=== PATIENT | male | born 1945 | race Caucasian/White ===

== ENCOUNTER 2018-08-02 17:00 | Outpatient (CLI) | payer MEDICARE, SELFPAY ==
--- NOTE | 2018-08-02 15:44 | DI.RAD_ITS ---
SYMPTOM/DIAGNOSIS: POSITIVE QUANTIFERON TB GOLD TB TEST, R76.12 PA AND LATERAL CHEST: The lungs are free of infiltrate. There is no pleural effusion. The cardiovascular structures are intact. SUMMARY: Normal chest.
== END 2018-08-02 17:20 ==
PROVIDERS: PCP Family Medicine; Visit Provider Dermatology
DX: R76.12 Nonspecific reaction to cell mediated immunity measurement of gamma interferon antigen response without active tuberculosis (principal)
CPT/HCPCS: 71046

== ENCOUNTER 2019-04-12 16:10 | Outpatient (CLI) | payer MEDICARE, SELFPAY ==
[2019-04-12 19:03] LABS: ALT 29 U/L (12-78); AST 21 U/L (15-37); Albumin 3.6 g/dL (3.4-5.0); Alkaline Phosphatase 82 U/L (46-116); Bilirubin, Direct 0.16 mg/dL (0.00-0.20); Bilirubin, Total 0.4 mg/dL (0.2-1.0); Total Protein 6.9 g/dL (6.4-8.2)
[2019-04-14 15:39] LABS: CEA 2.3 ng/ml
== END 2019-04-12 16:30 ==
PROVIDERS: PCP Family Medicine; Visit Provider Family Medicine
DX: C78.5 Secondary malignant neoplasm of large intestine and rectum (principal)
CPT/HCPCS: 36415; 80076; 82378

== ENCOUNTER 2019-12-30 10:32 | Outpatient (CLI) | payer MEDICARE, SELFPAY ==
[2019-12-30 13:48] LABS: ALT 74 U/L (16-63); AST 59 U/L (15-37); Albumin 3.4 g/dL (3.4-5.0); Alkaline Phosphatase 69 U/L (46-116); Bilirubin, Total 0.7 mg/dL (0.2-1.0); Glucose 95 mg/dL (74-106); Total Protein 6.6 g/dL (6.4-8.2); Vitamin B12 306 pg/mL (193-986)
[2019-12-30 14:24] LABS: Bilirubin, Direct 0.22 mg/dL (0.00-0.20); Uric Acid 8.4 mg/dL (3.5-7.2)
[2020-01-02 10:46] LABS: CEA 1.7 ng/mL (See Note)
[2020-01-03 14:51] LABS: Methylmalonic Acid 0.22 nmol/mL (<=0.40)
== END 2019-12-30 10:52 ==
PROVIDERS: PCP Family Medicine; Visit Provider Family Medicine
DX: G62.9 Polyneuropathy, unspecified (principal); G72.89 Other specified myopathies; C78.5 Secondary malignant neoplasm of large intestine and rectum; J18.9 Pneumonia, unspecified organism
CPT/HCPCS: 36415; 80076; 80186; 82947; 82378; 82607; 84550

== ENCOUNTER 2020-01-19 09:40 | Outpatient (CLI) | payer MEDICARE, SELFPAY ==
[2020-01-20 11:39] LABS: Homocysteine 12.8 umol/L (5.0-13.9)
== END 2020-01-19 10:00 ==
PROVIDERS: PCP Family Medicine; Visit Provider Family Medicine
DX: G62.9 Polyneuropathy, unspecified (principal)
CPT/HCPCS: 36415; 83090

== ENCOUNTER 2020-06-22 10:34 | Emergency (ER) | payer MEDICARE, SELFPAY ==
[2020-06-22 10:40] VITALS: BP 143/101; PULSE 76; RESP 18; TEMP 36.6; O2SAT 96
--- NOTE | 2020-06-22 10:45 | DI.US_ITS ---
EXAM: US SCROTUM CLINICAL HISTORY: Right testicle pain TECHNIQUE: Ultrasound performed using standard protocol. COMPARISON: No exams were available for comparison FINDINGS: Scrotal ultrasound was performed according to the usual protocol. The right testis is normal in size and shape. There is a tiny intra testicular cyst. No mass lesion identified. Normal Doppler evalu ation of the right testis. Small right-sided hydrocele noted, epididymis shows no evidence of signif icant pathology. There is a very large left varicocele which includes an intra testicular component of the varicocele. No intra testicular mass. Unremarkable appearance of left epididymis. Normal Doppler flow to left testicular parenchyma. IMPRESSION: No evidence of testicular torsion or mass. Large left-sided varicocele with intra testicular compone nt also noted. The patient reports that he has had a known left varicocele for many years. DATA REPOSITORY:
[2020-06-22 10:51] LABS: Bilirubin Small (Negative); Blood Negative (Negative); Clarity Clear (Clear); Glucose Negative (Negative); Ketones Trace mg/dL (Negative); Leukocyte Esterase Negative (Negative); Nitrite Negative (Negative); Specific Gravity >= 1.030 (1.005-1.025); Urobilinogen 0.2 EU/dL (Up TO 0.2)
[2020-06-22 11:03] LABS: Bacteria Negative HPF (Negative); C & S Indicated? No; Casts Negative LPF (Negative); Crystals Negative HPF (Negative); Epithelial Cells Negative HPF (Negative); Mucus Trace (Negative); RBC Negative HPF (0-2); WBC Negative HPF (0-5)
--- NOTE | 2020-06-22 12:29 | ED.GENADUL_ITS ---
Discharge Plan Disposition Patient Disposition: HOME Condition: Stable Discharge Details Chief Complaint: RashLesion Clinical Impression: Cellulitis, Left varicocele Primary Care Provider: Jose Wilson ED Provider: Jelani Narvaez Home Meds and New Rx's Prescriptions: New cephalexin [Keflex] 500 mg capsule 500 mg PO QID 10 Days Qty: 40 RF: 0 Continued triamcinolone acetonide 0.025 % cream 1 applic Topical BID PRN (Reason: body rash) Qty: 80 RF: 2 indomethacin 25 mg capsule 25 mg PO QID PRN RF: 0 thiamine HCl (vitamin B1) [Vitamin B-1] 100 mg Tablet 100 mg PO DAILY RF: 0 pyridoxine (vitamin B6) [Vitamin B-6] 100 mg Tablet 100 mg PO DAILY RF: 0 Discharge Instructions Instructions: Cellulitis (ED), Varicocele (ED) Additional Instructions: Keflex as directed. Keep the areas clean and dry, you may apply a non-scented moisturizing lotion and continue using your eczema cream. Please watch for new or worsening symptoms and return to the ER for any concerns. I do recommend juan t you reach out to your primary care provider for prompt outpatient reevaluation. If you continue to have symptoms potentially related to your chronic varicocele, you may decide to follow-up with a urologist. Discharge Data Discharge Date/Time-TO BE ENTERED AT DEPARTURE: 06/22/20 12:38 Medical Decision Making 75-year-old gentleman who presents with 2 separate problems. First he has chronic eczema but now has skin breakdown secondary to excoriations and chronic scratching. He appears to have localized cellulitis. We will treat this with Keflex, he will continue his chronic eczema care, and follow-up with his primary care provider. He reports a throbbing pain in his right testicle in the morning over the past month. No symptoms now. Known left varicocele which is obviously present on evaluation otherwise examination is unremarkable. Will obtain urinalysis and ultrasound however low suspicion for torsion. Patient is comfortable with this prescription for Keflex and follow-up with his primary care provider. We discussed his ultrasound findings. Known varicocele otherwise unremarkable. He will also follow-up with his primary care provider regarding this and if symptoms persist request a urology referral. Medical Records Medical records reviewed: Yes I reviewed the patient's medical records. Imaging Data Radiologic Study: Attestation: I personally reviewed and interpreted this imaging study as follows: Imaging: Ultrasound Radiologist's impression: No evidence of testicle torsion or mass. Large left-sided varicocele with intratesticular component also noted. Lab Data Lab results reviewed: Yes I reviewed the patient's lab results. Lab results narrative: Laboratory Tests Range/Units 06/22/20 10:39 Urine Color (Yellow) Yellow Urine Clarity (Clear) Clear Urine pH (5-8) 6.0 Ur Specific [place] (1.005-1.025) >= 1.030 H Urine Protein (Negative) mg/dL 30 H Urine Ketones (Negative) mg/dL Trace H Urine Blood (Negative) Negative Urine Nitrite (Negative) Negative Urine Bilirubin (Negative) Small H Urine Urobilinogen (Up TO 0.2) EU/dL 0.2 Ur Leukocyte Esterase (Negative) Negative Urine RBC (0-2) HPF Negative Urine WBC (0-5) HPF Negative Ur Epithelial Cells (Negative) HPF Negative Urine Crystals (Negative) HPF Negative Urine Bacteria (Negative) HPF Negative Urine Casts (Negative) LPF Negative Urine Mucus (Negative) Trace Ur Culture Indicated? No Urine Glucose (Negative) mg/dL Negative HPI General Mode of arrival: ambulatory . Date/Time Provider Initiated Documentation: 06/22/20 10:46 . Limitations to Documentation: no limitations . Information obtained by: patient . HPI Narrative: This is a 75-year-old gentleman with a past medical history that includes hepatitis A, gout, eczema, presenting to the ER for 2 separate issues. First he reports that his chronic eczema is treated by his primary care provider and he is using his triamcinolone cream as directed. Over the past couple of weeks he has developed sores on both of his forearms from scratching. He is concerned now that these areas are infected. He does report that he was able to pop 1 of the lesions on his right forearm a couple days ago. He reports the areas feel warm, tight, swolle n. He denies numbness, tingling, weakness, or fevers. He also reports that he has a known varicocele in his left testicle however in the morning over the past month he has had a mild amount of throbbing pain in his right testicle that spontaneously goes away. He denies any abdominal pain, dysuria, hematuria, penile discharge. Related Data Home Medications Medication Instructions Recorded Confirmed triamcinolone acetonide 0.025 % 1 applic TOPICAL BID PRN #80 gm 04/12/19 06/22/20 topical cream indomethacin 25 mg capsule 25 mg PO QID PRN cap 12/30/19 06/22/20 cephalexin [Keflex] 500 mg PO QID 10 Days #40 cap 06/22/20 pyridoxine (vitamin B6) [Vitamin 100 mg PO DAILY 06/22/20 06/22/20 B-6] thiamine HCl (vitamin B1) [Vitamin 100 mg PO DAILY 06/22/20 06/22/20 B-1] Previous Rx's Medication Instructions Recorded triamcinolone acetonide 0.025 % 1 applic TOPICAL BID PRN #80 gm 04/12/19 topical cream cephalexin [Keflex] 500 mg PO QID 10 Days #40 cap 06/22/20 Allergies Allergy/AdvReac Type Severity Reaction Status Date / Time bacitracin AdvReac Intermediate SWELLING & Verified 12/30/19 10:05 IRRITATION General Stated Complaint: RashLesion OSCAR: 3 Review of Systems Constitutional Constitutional: Denies fatigue, Denies fever(s) and Denies weakness Cardiovascular Cardiovascular: Denies chest pain and Denies dyspnea Respiratory Respiratory: Denies cough and Denies dyspnea Gastrointestinal Gastrointestinal: Denies abdominal pain, Denies nausea and Denies vomiting Genitourinary Genitourinary: Denies hematuria, Denies dysuria, Denies penile discharge, Reports scrotal swelling (Chronic), Reports testicular pain, Denies urinary frequency, Denies urinary hesitancy and Denies urinary urgency Musculoskeletal Musculoskeletal: Denies back pain, Denies numbness and Denies tingling Integumentary/Breasts Skin/Breast: Reports rash Neurologic Neurologic: Denies numbness, Denies tingling and Denies weakness Endocrine Endocrine: Denies fatigue Hematologic/Lymphatic Hematologic/Lymphatic: Denies easy bleeding and Denies easy bruising [facility] Medical History Gout (Chronic) HEPATITIS A Lung nodule (Acute ~01/2019) 01/31/19 Scattered Lung nodes and axillary node noted on CT scan at [facility] 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 EMERGENCY ABDOMINAL SURGERY~12/28 scar tissue. Family History Mother , 87 Heart disease Father , 83 Heart disease Sister Heart disease Mental disorder MANIC/DEPRESSIVE Depression Sister , 73 Ovarian cancer Uterine cancer Sister No problems noted. Brother No problems noted. Maternal Grandfather , 75 Heart disease Paternal Grandfather No problems noted. Maternal Grandmother , 90 Heart disease Paternal Grandmother No problems noted. Son No problems noted. Son No problems noted. Daughter No problems noted. Daughter No problems noted. FAMILY HISTORY Autoimmune disease Social History Smoking/Tobacco Use Status: Former Tobacco Use Quit Date: 10/16/18 Tobacco: How many years used: 50 Alcohol Intake: current Alcohol Intake frequency: 0-2 drinks per day Alcohol type: beer Drug use: Never Substance use type: does not use Caregiver/Support person: No Household members: significant other Housing: house Communication Needs: None Do you need help understanding health information?: Rarely Pets and animals: Yes Pets and animals: dog(s) Sexually active: Yes Do you think of yourself as: straight/heterosexual Current gender identity: male What is your relationship status?: living with partner How often do you talk on the phone with friends or family?: three or more times per week How often do you get together with friends or relatives?: once per week How often do you attend restoration or oriental orthodox services?: 1-3 times per year Do you belong to any clubs or organized social groups?: no Panel score (0-1 are the most socially isolated patients): 2 What type of physical activity do you participate in: walking, bicycling and other Duration: 30-45 minutes/day Frequency: daily Genevieve/Yazidi: none Special genevieve needs: No Seatbelt use: always Helmet use: Yes Helmet use: always Drive intox or ride w/intox refrigerated national truck driver: No Do you feel safe at home: Yes Do you feel safe in your relationship?: Yes Exam Const General: cooperative, healthy appearing, comfortable and no acute distress Orientation: alert, awake and oriented x3 HENMT Head: normal to inspection, normocephalic and atraumatic Mouth: moist mucous membranes Eyes Conjunctivae: conjunctivae normal Sclera: sclerae normal Neck Neck: normal visual inspection, full ROM, trachea midline and supple Resp Effort & Inspection: normal respiratory effort and able to speak in complete sentences Auscultation: clear to auscultation bilaterally Cardio Rate: regular rate Rhythm: regular rhythm GI Palpation: soft and nontender Penis: normal penis Meatus: meatus normal Scrotum: varicocele on the left Testes: no testicular tenderness Back/Spine/Pelvis Back: No back tenderness Skin General skin exam: no rashes or lesions noted Other: Patient has diffuse dry, flaking skin. He has a rash that is consistent with eczema across his lower legs and forearms, higher concentration on the forearms. During my evaluation he is constantly scratching his forearms. There are areas on bilateral forearms that are fairly excoriated with now open shallow sores or lesions. Mild induration with localized erythema, warmth, discomfort to palpation. There is no lymphangitic streaking, fluctuance, pointing abscess or drainage. Neuro, vascular, tendon intact. Neuro General: patient alert, patient awake, patient oriented x3, moves all extremities and no focal motor deficits Speech: speech normal Gait: normal gait Motor: muscle tone normal throughout Sensory Exam: no sensory deficits noted Extrem General: full ROM, capillary refill normal and no pedal edema Psych Appearance: grossly normal Mental Status: mental status grossly normal Course Vital Signs Vital signs: Vital Signs Temperature 36.6 C 06/22/20 10:40 Pulse 76 06/22/20 10:40 Respiratory Rate 18 06/22/20 10:40 Blood Pressure 143/101 H 06/22/20 10:40 Pulse Oximetry 96 06/22/20 10:40 Temperature 36.6 C 06/22/20 10:40 Temperature Source Temporal Artery Scan 06/22/20 10:40 Pulse 76 06/22/20 10:40 Respiratory Rate 18 06/22/20 10:40 Respiratory Effort Non-Labored 06/22/20 10:51 Blood Pressure 143/101 H 06/22/20 10:40 Blood Pressure Position Sitting 06/22/20 10:40 Pulse Oximetry 96 06/22/20 10:40 Oxygen Delivery Method Room Air 06/22/20 10:40 Oxygen Flow Rate 0 06/22/20 10:40 Pain Level 3 06/22/20 10:40 Lab/Test Results Lab/Test Results: Laboratory Tests Range/Units 06/22/20 10:39 Urine Color (Yellow) Yellow Urine Clarity (Clear) Clear Urine pH (5-8) 6.0 Ur Specific [place] (1.005-1.025) >= 1.030 H Urine Protein (Negative) mg/dL 30 H Urine Ketones (Negative) mg/dL Trace H Urine Blood (Negative) Negative Urine Nitrite (Negative) Negative Urine Bilirubin (Negative) Small H Urine Urobilinogen (Up TO 0.2) EU/dL 0.2 Ur Leukocyte Esterase (Negative) Negative Urine RBC (0-2) HPF Negative Urine WBC (0-5) HPF Negative Ur Epithelial Cells (Negative) HPF Negative Urine Crystals (Negative) HPF Negative Urine Bacteria (Negative) HPF Negative Urine Casts (Negative) LPF Negative Urine Mucus (Negative) Trace Ur Culture Indicated? No Urine Glucose (Negative) mg/dL Negative
== END 2020-06-22 12:38 | disposition home or self-care (01) ==
PROVIDERS: Emergency Provider Physician Assistant; PCP Family Medicine
DX: L03.113 Cellulitis of right upper limb (principal); L03.114 Cellulitis of left upper limb; N50.811 Right testicular pain; I86.1 Scrotal varices
CPT/HCPCS: 99284; 76870; 81003; 81015

== ENCOUNTER 2020-07-17 04:49 | Outpatient (CLI) | payer MEDICARE, SELFPAY ==
[2020-07-17 13:32] LABS: ALT 34 U/L (16-63); AST 20 U/L (15-37); Albumin 3.1 g/dL (3.4-5.0); Alkaline Phosphatase 70 U/L (46-116); Anion Gap 6.9 mmol/L (3-11); BUN 26 mg/dL (7-18); Bilirubin, Total 0.7 mg/dL (0.2-1.0); CO2 26.1 mmol/L (21.0-32.0); Calcium 8.8 mg/dL (8.5-10.1); Chloride 111 mmol/L (98-107); Estimated GFR 49.27 (mL/min/1.73m2); Glucose 83 mg/dL (74-106); Potassium 4.4 mmol/L (3.5-5.1); Sodium 144 mmol/L (136-145); Total Protein 6.2 g/dL (6.4-8.2)
== END 2020-07-17 05:09 ==
PROVIDERS: PCP Family Medicine; Visit Provider Internal Medicine
DX: R10.9 Unspecified abdominal pain (principal)
CPT/HCPCS: 36415; 80053

== ENCOUNTER 2020-10-01 12:54 | Outpatient (CLI) | payer MEDICARE, SELFPAY ==
[2020-10-04 17:42] LABS: Patient Race White; SARS-CoV-2 RNA Undetected (Undetected); SARS-CoV-2 Specimen Source Nasal
== END 2020-10-01 13:14 ==
PROVIDERS: Nurse Practitioner Family; PCP Family Medicine; Visit Provider Family Medicine
DX: Z11.59 Encounter for screening for other viral diseases (principal)
CPT/HCPCS: U0003

== ENCOUNTER 2020-11-23 14:00 | Emergency (ER) | payer MEDICARE, SELFPAY ==
[2020-11-23] VITALS (26 sets, daily range): BP systolic 105–162; BP diastolic 60–97; PULSE 44–72; RESP 10–25; TEMP 36.3–36.6; O2SAT 93–97
--- NOTE | 2020-11-23 14:00 | RT.EKG_ITS ---
APPROVED REPORT Exam: Resting ECG Patient Location: E HR:59 bpm ECG Measurements Heart Rate 59 AXIS NV 173 P 68 QRSd 86 QRS 41 QT 433 T 61 QTc 428 Conclusion Sinus bradycardia. No st elevation
--- NOTE | 2020-11-23 14:15 | DI.RAD_ITS ---
EXAM: XR CHEST 2V PA LATERAL CLINICAL HISTORY: Chest pain, weakness TECHNIQUE: 2D digital imaging was performed. COMPARISON: CR XR CHEST 2V PA LATERAL from 08/02/2018 FINDINGS: MEDIASTINUM: Normal. HEART: Normal. PULMONARY VASCULATURE: Normal. LUNGS: Clear. Hyperexpansion of the lungs with flattened diaphragms consistent with underlying COPD. PLEURAL SPACE: No pleural effusion or pneumothorax. BONE:Within normal limits for the patient's age. OTHER FINDINGS:Surgical clips along the right hemidiaphragm are again noted. IMPRESSION: No acute pulmonary findings. DATA REPOSITORY: RADIATION DOSE DELIVERED:
--- NOTE | 2020-11-23 14:17 | W.ED.GENAD ---
Discharge Plan Disposition Patient Disposition: HOME Condition: Fair Discharge Details Clinical Impression: Chest pain Primary Care Provider: Jose Wilson ED Provider: Edwina Anderson Home Meds and New Rx's Prescriptions: Continued indomethacin 25 mg capsule 25 mg PO QID PRN RF: 0 triamcinolone acetonide 0.025 % cream 1 applic Topical BID PRN (Reason: eczema) Qty: 454 RF: 2 Discharge Instructions Instructions: Chest Pain (ED) Additional Instructions: Your labs and EKGs are reassuring. However, I still remain quite concerned regarding your history. Admission was discussed which you have declined. Instead, I have ordered an outpatient stress test. You will be called to schedule this test. Please follow-up with your primary care next week. Please take it easy this weekend and not physically exert yourself. You may continue with daily aspirin. If you develop any recurrence of your symptoms, chest pain, shortness of breath, nausea or other new/worsening symptoms please seek care urgently once again. Referrals: Jose Wilson [Primary Care Provider] - Discharge Data Discharge Date/Time-TO BE ENTERED AT DEPARTURE: 11/23/20 19:00 Medical Decision Making <Gayathri Colby - Last Filed: 11/24/20 16:04> 75-year-old male presents to the ED chief complaint of chest pain, associated with dizziness and weakness. Patient states that just prior to arrival he was in the supermarket when he began suddenly feeling very weak and dizzy he then started with midsternal dull chest pain which lasted approximately 30 minutes and then went away. He is chest pain-free at this time upon initial exam. He does say that he feels weak and lightheaded. He denies any room spinning or vertigo type symptoms. He denies any nausea vomiting diarrhea problems urinating no shortness of breath or cough denies any fever or chills. He did take two aspirin prior to arrival. He also states that he is on oral nicotine chewable and an oral steroid. He does drink alcohol on a daily basis last drink was last night. He has a past medical history of lung nodule, alcohol abuse, hypertension he is a former smoker, he also has a history of colon cancer which he has had surgically removed. At this time work-up ordered including CBC, CMP, serial troponins, ETOH level, CXR, Urinalysis EKG was reviewed by Dr. Eileen GALLEGOS ER attending, please see his official report. Sinus bradycardia no ST elevation. No old EKG available for review Orthostatics are negative per RN report. Initial labs are largely unremarkable initial troponin is within normal limits, glucose 166, magnesium within normal limits. EXAM: XR CHEST 2V PA LATERAL CLINICAL HISTORY: Chest pain, weakness TECHNIQUE: 2D digital imaging was performed. COMPARISON: CR XR CHEST 2V PA LATERAL from 08/02/2018 FINDINGS: MEDIASTINUM: Normal. HEART: Normal. PULMONARY VASCULATURE: Normal. LUNGS: Clear. Hyperexpansion of the lungs with flattened diaphragms consistent with underlying COPD. PLEURAL SPACE: No pleural effusion or pneumothorax. BONE:Within normal limits for the patient's age. OTHER FINDINGS:Surgical clips along the right hemidiaphragm are again noted. IMPRESSION: No acute pulmonary findings. Care to be handed off to oncoming provider FATUMA Bobby pending repeat troponin and disposition. <FAUTMA Lee - Last Filed: 11/23/20 18:39> Care transition myself from Brooke Fischer NP. Please see her note for history, exam and presentation. In brief, patient is a pleasant 75-year-old gentleman presenting today with chief complaint of chest pressure. Began prior to arrival while he was shopping. Subsided prior to coming into the department. Patient took aspirin prior to arrival. Patient's past medical history significant for multiple pulmonary nodules, gout, alcohol abuse, hypertension. Patient reports that he did smoke for majority of his life but did stop 2 years ago. Patient's mother in her 80s of an [place]. Just after my assumption of care, patient began to report some chest pressure. States he is also nauseated with this. We will give the patient sublingual nitro and repeat his EKG. Labs have already been completed were reviewed. CBC within normal limits. Patient's creatinine is elevated at 1.36. He has been elevated like this historically. Initial troponin within normal limits. Patient reports feeling improved after sublingual nitro. EKG was obtained while the patient was symptomatic with no acute changes noted by Dr. Arellano. Patient continues to be asymptomatic without further intervention at this time. His repeat troponin remains less than 0.05. Patient's heart score is 4 putting him into the moderate category. He did recommend admission to this patient that he would prefer outpatient monitoring. He reports that he will take it easy over the weekend and will come in next week for a stress test. Stress test was ordered by myself. Strict return precautions were given. He reports that he lives quite close to ambulance service and is able to seek emergent care quickly if needed. He will continue with daily aspirin. All of his questions and concerns were addressed and he is in agreement with this plan. HPI <Gayathri Colby - Last Filed: 11/24/20 16:04> General Mode of arrival: ambulatory. Date/Time Provider Initiated Documentation: 11/23/20 14:01. Limitations to Documentation: no limitations. Information obtained by: patient. HPI Narrative: 75-year-old male presents to the ED chief complaint of chest pain, associated with dizziness and weakness. Patient states that just prior to arrival he was in the supermarket when he began suddenly feeling very weak and dizzy he then started with midsternal dull chest pain which lasted approximately 30 minutes and then went away. He is chest pain-free at this time upon initial exam. He does say that he feels weak and lightheaded. He denies any room spinning or vertigo type symptoms. He denies any nausea vomiting diarrhea problems urinating no shortness of breath or cough denies any fever or chills. He did take two aspirin prior to arrival. He also states that he is on oral nicotine chewable and an oral steroid. He does drink alcohol on a daily basis last drink was last night. He has a past medical history of lung nodule, alcohol abuse, hypertension he is a former smoker, he also has a history of colon cancer which he has had surgically removed. Related Data Home Medications Medication Instructions Recorded Confirmed indomethacin 25 mg capsule 25 mg PO QID PRN cap 12/30/19 11/23/20 triamcinolone acetonide 0.025 % 1 applic TOPICAL BID PRN #454 gm 07/04/20 11/23/20 topical cream Previous Rx's Medication Instructions Recorded triamcinolone acetonide 0.025 % 1 applic TOPICAL BID PRN #454 gm 07/04/20 topical cream Allergies Allergy/AdvReac Type Severity Reaction Status Date / Time bacitracin AdvReac Intermediate SWELLING & Verified 11/23/20 14:16 IRRITATION General Stated Complaint: Chest Pain OSCAR: 2 Review of Systems <Gayathri Colby - Last Filed: 11/24/20 16:04> Narrative: Constitutional: Negative for weight loss, alert and oriented, well groomed, normal body habitus, appears comfortable. HEENT: Denies trauma, headaches, blurry vision, nasal discharge, sore throat, trouble swallowing. Chest: Denies palpitations, irregular rhythm, hypertension. Had an episode of midsternal chest pain which lasted proximately 30 minutes and has now resolved. Respiratory: Denies Shortness of breath, cough, hemoptysis. GI: Denies abdominal pain, nausea, vomiting, diarrhea, constipation. : Denies dysuria, hematuria, flank pain, rectal bleeding. Neuro: Denies blurry vision, syncope, headache or facial numbness. Reports weakness and lightheadedness. Hematologic: Denies easy bruising, intolerance to heat or cold, hair loss. 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 EMERGENCY ABDOMINAL SURGERY~12/28 scar tissue. Family History Mother , 87 Heart disease Father , 83 Heart disease Sister Heart disease Mental disorder MANIC/DEPRESSIVE Depression Sister , 73 Ovarian cancer Uterine cancer Sister No problems noted. Brother No problems noted. Maternal Grandfather , 75 Heart disease Paternal Grandfather No problems noted. Maternal Grandmother , 90 Heart disease Paternal Grandmother No problems noted. Son No problems noted. Son No problems noted. Daughter No problems noted. Daughter No problems noted. FAMILY HISTORY Autoimmune disease Social History Smoking/Tobacco Use Status: Former Tobacco Use Quit Date: 10/16/18 Tobacco: How many years used: 50 Smoking risk assessment performed?: Yes Alcohol Intake: current Alcohol Intake frequency: 0-2 drinks per day Alcohol type: beer Drug use: Never Substance use type: does not use Caregiver/Support person: No Household members: significant other Housing: house Communication Needs: None Do you need help understanding health information?: Rarely Pets and animals: Yes Pets and animals: dog(s) Sexually active: Yes Do you think of yourself as: straight/heterosexual Current gender identity: male What is your relationship status?: living with partner How often do you talk on the phone with friends or family?: three or more times per week How often do you get together with friends or relatives?: once per week How often do you attend druze or orthodox services?: 1-3 times per year Do you belong to any clubs or organized social groups?: no Panel score (0-1 are the most socially isolated patients): 2 What type of physical activity do you participate in: walking, bicycling and other Duration: 30-45 minutes/day Frequency: daily Genevieve/Taoism: none Special genevieve needs: No Seatbelt use: always Helmet use: Yes Helmet use: always Drive intox or ride w/intox trailer driver: No Do you feel safe at home: Yes Do you feel safe in your relationship?: Yes Exam <Gayathri Colby - Last Filed: 11/24/20 16:04> Narrative Exam Narrative: Constitutional: Alert and oriented x3. Appears stated age. Normal body habitus. Head: Normocephalic, no trauma. Eyes: Pupils PERRLA, Red reflex noted, EOM's intact. Eyelids symmetrical without lesions, discharge, or swelling. ENT: Bilateral TM's WNL, External ear normal to inspection, no mastoid TTP, swelling, or erythema, Nasal turbinates WNL, no nasal discharge. Normal dentition, Posterior pharynx WNL, no exudate. Chest: RRR, Normal S1, S2, distal pulses intact. Resp: Lungs clear to auscultation bilaterally, no wheezes, rales, or rhonchi. Musculoskeletal: Normal gait, 5/5 strength to all four extremities. Skin: No suspicious rashes or lesions. Capillary refill less than 2 sec. Neurologic: Cranial nerves II-XII intact. Alert and oriented x 3. DTR's intact. Hematologic/Lymphatic: No ecchymosis, no lymphadenopathy. Course <Gayathri Colby - Last Filed: 11/24/20 16:04> Vital Signs Vital signs: Vital Signs Temperature 36.3 C L 11/23/20 14:04 Pulse 60 11/23/20 14:04 Respiratory Rate 15 11/23/20 14:04 Pulse Oximetry 97 11/23/20 14:04 Temperature 36.3 C L 11/23/20 14:04 Temperature Source Skin 11/23/20 14:04 Pulse 60 11/23/20 14:04 Respiratory Rate 15 11/23/20 14:04 Respiratory Effort 11/23/20 14:11 Pulse Oximetry 97 11/23/20 14:04 Oxygen Delivery Method Room Air 11/23/20 14:04 Oxygen Flow Rate 0 11/23/20 14:04 Pain Level 0 11/23/20 14:04 Sign Out <Gayathri Colby - Last Filed: 11/24/20 16:04> Sign Out Data: Sign Out Comment: Pending repeat Troponin and disposition Last updated by Gayathri Colby at 11/23/20 15:50
[2020-11-23] MEDS: Aspirin 81 MG CHEW 162 MG CH (14:23)
[2020-11-23 14:26] LABS: Abs Immature Grans 0.01 10^3/uL (0.0-0.06); Absolute Basophil Count 0.03 10^3/uL (0.0-0.2); Absolute Lymphocyte Count 1.45 10^3/uL (1.2-3.4); Absolute Neutrophil Count 3.48 10^3/uL (1.2-6.7); Basophils % 0.5; Eosinophils % 1.8; HCT 43.2 % (40.0-50.0); HGB 14.5 g/dL (13.5-17.5); Immature Grans % 0.2; MCH 31.3 pg (27.0-33.0); MCHC 33.6 % (32.0-36.0); MCV 93.1 fL (80-95); MPV 9.5 fL (8.0-11.0); Neutrophils % 62.5; Nucleated RBC 0 %; Platelet Count 261 10^3/uL (130-400); RBC 4.64 10^6/uL (4.36-5.78); RDW 12.2 % (11.8-14.1); RDW-SD 41.9 fL; WBC 5.57 10^3/uL (4.4-10.8)
[2020-11-23] MEDS: Normal Saline Flush 10 ML SYR IVP (14:33)
[2020-11-23 14:46] LABS: ALT 23 U/L (16-63); AST 18 U/L (15-37); Albumin 3.2 g/dL (3.4-5.0); Alkaline Phosphatase 77 U/L (46-116); Anion Gap 7.2 mmol/L (3-11); BUN 16 mg/dL (7-18); Bilirubin, Total 0.5 mg/dL (0.2-1.0); CO2 26.8 mmol/L (21.0-32.0); CREATININE 1.36 mg/dL (0.70-1.30); Calcium 8.3 mg/dL (8.5-10.1); Chloride 107 mmol/L (98-107); Estimated GFR 50.95 (mL/min/1.73m2); Glucose 166 mg/dL (74-106); Potassium 3.9 mmol/L (3.5-5.1); Sodium 141 mmol/L (136-145); Total Protein 6.9 g/dL (6.4-8.2)
[2020-11-23 14:48] LABS: Troponin I < 0.05 ng/mL (<0.06)
[2020-11-23 14:53] LABS: Bilirubin Negative (Negative); Blood Negative (Negative); Clarity Clear (Clear); Glucose Negative (Negative); Ketones Negative (Negative); Leukocyte Esterase Negative (Negative); Nitrite Negative (Negative); Specific Gravity 1.025 (1.005-1.025); Urobilinogen 0.2 EU/dL (Up TO 0.2)
[2020-11-23 14:58] LABS: ETHANOL BLOOD < 3.0 mg/dL (<3)
--- NOTE | 2020-11-23 16:15 | RT.EKG_ITS ---
APPROVED REPORT Exam: Resting ECG Patient Location: E HR:76 bpm ECG Measurements Heart Rate 76 AXIS NC 164 P 50 QRSd 81 QRS -6 QT 427 T 41 QTc 466 Conclusion Sinus rhythm normal P axis Atrial premature complexes
[2020-11-23] MEDS: nitroGLYcerin 0.4 MG TAB SL ×2 (16:20→16:29)
[2020-11-23] MEDS: Normal Saline 1,000 ML 30 ML IV (16:24)
[2020-11-23 17:44] LABS: Troponin I < 0.05 ng/mL (<0.06)
--- NOTE | 2020-11-23 18:14 | NUR.NOTE ---
Nursing Note: Order for outpatient stress test faxed to DI. Meredith Cooper
[2020-11-26 11:30] LABS: COVID-19 RT-PCR UVMMC Result Negative (Negative)
--- NOTE | 2020-11-27 08:21 | NUR.NOTE ---
patient notified 11/27/20 @ 0813 of negative covid test results after identity verification.
== END 2020-11-23 19:00 | disposition home or self-care (01) ==
PROVIDERS: Registered Nurse Emergency; Emergency Provider Physician Assistant; PCP Family Medicine
DX: R07.89 Other chest pain (principal); R11.0 Nausea; I10 Essential (primary) hypertension; Z03.818 Encounter for observation for suspected exposure to other biological agents ruled out
CPT/HCPCS: 36415; 80053; 93005; 99285; U0003; 71046; 80320; 81003; 83735; 84484; 85025; 93010; 99284

== ENCOUNTER 2020-11-30 04:17 | Outpatient (CLI) | payer MEDICARE, SELFPAY ==
--- NOTE | 2020-11-30 12:00 | ETT_ITS ---
APPROVED REPORT Exam: Exercise Treadmill Patient Location: Out-Patient Room/Bed: Ordering Provider:ANDREE MALCOLM, Contact Number: [phone] BMI: 29.04 Baseline Rhythm: Sinus Rhythm Comment: PVCs, frequent PACs Indications: Chest pain w/ fatigue and lightheadedness. Medical History Medical History: Gout, Hepatic Lobectomy, Hepatitis A, Lung nodule. Cardiac Medications: Aspirin (325mg) Allergies: Bacitracin Cardiac Risk Factors: FHX of CAD, Obesity, Smoking (former) Previous Cardiac Procedures: None. Pretest Chest Pain Characteristics: None. Exercise History: Sedentary Physical Disabilities: None. Lung Sounds: Clear to auscultation, diminished Heart Sounds: Regular Stress Test Details Test: Exercise stress testing was performed using a Sina protocol. Rest Stress HR Resting HR Supine: 55 bpm Max Heart Rate (APMHR): 144 bpm Resting HR Standin bpm Target HR (85% APMHR): 122 bpm Max HR Achieved: 122 bpm % of APMHR: 84 Recovery HR: 67 bpm HR response to stress: Blunted HR response to stress BP Resting BP Supine: 152/98 mmHg Resting BP Standin/96 mmHg Max BP: 176/88 mmHg Recovery BP: 142/96 mmHg BP response to stress: Normal blood pressure response to stress. ECG Resting ECG: Sinus Bradycardia Ectopy: PVCs, frequent PACs Stress ECG: Sinus Tachycardia ST Change: No significant ST segment changes noted Arrhythmia: PACs, PVCs Recovery ECG: Sinus Rhythm Recovery ST Change: No significant ST segment changes noted Recovery Arrhythmia: PVCs, frequent PACs Clinical Reason for Termination: Dyspnea Stress Symptoms: Dyspnea Exercise duration: 8 min26 sec Highest Stage Reached: Stage 3: 3.4 mph at 14% grade. Exercise capacity: 10.10 METs Brizuela Treadmill Score: 7.5 Rate Pressure Product: 11168 Stress ECG Conclusion 1. Resting electrocardiogram showed sinus rhythm, isolated atrial premature beat, otherwise normal 2. The patient exercised on the Sina protocol and completed a workload of 10.10 METS, limited by dys pnea. 3. He exercised for 8 minutes 26 seconds. Normal blood pressure response to exercise. Blunted heart rate response to exercise. The patient achieved 84% of predicted heart rate for age 4. Electrocardiographically there was no evidence of myocardial ischemia 5. Frequent atrial premature beats, occasional ventricular premature beats noted Brizuela Treadmill Score is 7.5 which is Low risk.
== END 2020-11-30 04:37 ==
PROVIDERS: PCP Family Medicine; Visit Provider Physician Assistant
DX: R07.9 Chest pain, unspecified (principal); R53.83 Other fatigue; R42 Dizziness and giddiness; Z82.49 Family history of ischemic heart disease and other diseases of the circulatory system; Z87.891 Personal history of nicotine dependence; E66.9 Obesity, unspecified
CPT/HCPCS: 93016; 93018; 93017

== ENCOUNTER 2021-12-25 00:46 | Outpatient (CLI) | payer MEDICARE, SELFPAY ==
[2021-12-25 09:00] VITALS: BP 136/78; PULSE 71; RESP 20; TEMP 36.3; O2SAT 97
[2021-12-25 10:10] VITALS: BP 126/86; PULSE 70; RESP 16; TEMP 36.4; O2SAT 95
[2021-12-25 10:50] VITALS: BP 127/83; PULSE 60; RESP 20; TEMP 36.2; O2SAT 95
== END 2021-12-25 00:47 | disposition home or self-care (01) ==
PROVIDERS: PCP Family Medicine; Visit Provider Family Medicine
DX: U07.1 COVID-19 (principal)
CPT/HCPCS: 96365; Q0047

== ENCOUNTER 2022-04-04 19:59 | Outpatient (REF) | payer MEDICARE, SELFPAY | END 2022-04-04 20:00 | disposition home or self-care (01) | LOC: LBN 19:59 | PROVIDERS: PCP Family Medicine; Visit Provider Physician Assistant | DX: L02.512 Cutaneous abscess of left hand (principal) | CPT/HCPCS: 87077; 87070; 87075; 87186; 87205 ==

== ENCOUNTER → 2023-10-19 09:24 | Outpatient (BNVA) | payer MEDICARE, SELFPAY | PROVIDERS: PCP Family Medicine; Referring Provider Family Medicine; Visit Provider Surgery | DX: C78.5 Secondary malignant neoplasm of large intestine and rectum (principal); Z52.6 Liver donor; Z98.890 Other specified postprocedural states | CPT/HCPCS: 99214 ==

== ENCOUNTER 2024-02-26 18:57 | Outpatient (REF) | payer MEDICARE, SELFPAY | END 2024-02-26 18:58 | disposition home or self-care (01) | LOC: LBN 18:57 | PROVIDERS: PCP Family Medicine; Visit Provider Family Medicine | DX: L03.113 Cellulitis of right upper limb (principal); L30.8 Other specified dermatitis | CPT/HCPCS: 87070 ==

== ENCOUNTER → 2024-06-23 14:19 | Outpatient (BNVA) | payer MEDICARE, SELFPAY | PROVIDERS: PCP Family Medicine; Referring Provider Family Medicine; Visit Provider Physical Therapy Assistant | DX: Z12.11 Encounter for screening for malignant neoplasm of colon (principal); Z86.010 Personal history of colon polyps ==

== ENCOUNTER 2024-07-11 07:29 | Day surgery (SDC) | payer MEDICARE, SELFPAY ==
--- NOTE | 2024-07-10 20:20 | PDOC.DSDIS_ITS ---
Date of service: 07/11/24 Time of Service: 09:49 Discharge Plan Disposition Patient Disposition: Home Condition: Good Discharge Details Reason For Visit: screening colonoscopy Attending Provider: Serafni Enriquez Primary Care Provider: Jose Wilson Home Meds and New Rx's Prescriptions: Continued triamcinolone acetonide 0.1 % cream 1 applic topical BID Qty: 15 0RF triamcinolone acetonide 0.025 % cream 1 applic Topical BID PRN (Reason: eczema) Qty: 454 2RF Rx Instructions: apply to rash on legs/arms/torso Discontinued bisacodyl [Dulcolax (bisacodyl)] 5 mg tablet,delayed release (DR/EC) 5 mg PO ONCE Qty: 4 0RF Rx Instructions: Take per colonoscopy instructions provided by ordering providers office polyethylene glycol 3350 17 gram/dose powder 17 g PO ONCE Qty: 238 0RF Rx Instructions: Take per colonoscopy instructions provided by ordering providers office Discharge Instructions Instructions: IV Infiltration Additional Instructions: Zev, we were able to complete your colonoscopy today without too much difficulty (aside from the IV). your prep was excellent, and I could see e verything just fine. I did find to remove 1 polyp today. It was small in size, and none of its features are worrisome to the naked eye. Regardless, like we talked about beforehand, this will be sent off for testing. Once the office gets the results of the polyp analysis, we will be in touch with recommendations for your next colonoscopy. If you need anything or have any questions in the meantime, please do not hesitate to ask. 1. If tolerated, consume a soft, low fiber diet for 1-2 days. 2[address] Do not drive, drink alcohol, operate machinery, make critical decisions, or do activities that require coordination or balance for 24 hours. 3. Because air was put into your colon during the procedure, expelling air from your rectum (passing gas or farting) is normal. 4. You may not have a bowel movement for 1-3 days because of the colonoscopy prep. This is normal. 5. Go directly to the emergency room if you notice any of the following: Develop chills (warm to touch), or if you have a thermometer and your temperature is above 101 Difficulty breathing or difficultly swallowing Persistent vomiting Severe abdominal pain, other than gas cramps Severe chest pain Black, tarry stools Any bleeding ? exceeding one tablespoon 6. Call your physician if the site where your intravenous was started becomes red, swollen, painful, and warm to touch. 7. Your physician has reviewed your pre-procedure medications. Please continue to take those medications as previously ordered. You will be given specific information/education regarding any changes to your medications before leaving. Stand Alone Forms: Anesthesia Discharge InstBrian Pandya (DSU) Activity:: Activity as Tolerated Diet:: As Tolerated Discharge Orders Discharge Orders: Discharge Order (Routine); Ordered 07/10/24 Ordered By: Serafin Enriquez DS: Diagnosis Discharge Diagnosis (1) Encounter for screening colonoscopy: Status: Acute Asessment and Plan: Follow-up on polypectomy results
--- NOTE | 2024-07-10 20:22 | COLE_ITS ---
Date of service: 07/11/24 Time of Service: 09:50 Colonoscopy Report Date of procedure: 07/11/24 Pre-op diagnosis general: screening colonocsopy Post-op diagnosis procedure note: other (Colon polyps) Procedure: colonoscopy with polypectomy Surgeon: Serafin Enriquez Anesthesia Type: General:No Airway Estimated blood loss (mL): 5 Pathology: other (0.25 cm polyp at 45 cm from the anus) Complications: None Disposition: same day Indications: Zev is an 79 year old manw with a history of colon cancer who needs his next screening colonoscopy Prep: Miralax/Dulcolax Procedure Start Time: :07 Procedure End Time: :27 Retraction Time: 9 Findings: 0.25 cm polyp at 45 cm from the anus Procedure Description: After the induction of anesthesia, and with the patient in left lateral decubitus position, I began by performing an external anorectal exam.? Perineum and skin were normal, as was the anal verge.? There was no evidence of external hemorrhoids.? Next, I performed a digital rectal exam.? I did not appreciate any abnormal findings.? Next, I advanced a colonoscope into the rectal vault.? I performed retroflexion.? This appears normal.? Using insufflation, I then advanced the colonoscope beyond the rectal folds and into the sigmoid colon before advancing towards the right side.? The quality of the prep was excellent.? The ileocolic anastomosis was encountered towards the right side. Anastomosis was widely patent and healthy appearing. I saw no evidence of any pathology here.? I then began withdrawing the colonoscope using repeated irrigation as necessary for full evaluation of the colonic mucosa. Around 45 cm from the anal verge I identified a 0.25 polyp. ?It appeared flat in character. ?I was able to remove this with a cold forcep polypectomy. ?I examined the site, and there was minimal bleeding. ?Once this was completed, I continued to withdraw the scope and examine the remainder of the colonic mucosa.?Once the scope was withdrawn to the level of the rectum, great care was taken to examine portions of the rectal folds.? Finally, the scope was withdrawn and the patient was brought to the same-day surgery recovery unit as the anesthetic wore off. ?The findings and instructions were shared with the patient prior to discharge. [place] Bowel Prep [place] Bowel Prep Right Colon: 3 Left Colon: 3 Transverse Colon: 3 Total Score: 9
[2024-07-11 07:42] VITALS: BP 127/81; PULSE 72; RESP 18; TEMP 36; O2SAT 95
[2024-07-11] MEDS: Lactated Ringers 1,000 ML 80 ML IV (08:00)
--- NOTE | 2024-07-11 08:10 | ANES.PREOP_ITS ---
General Info Date of Service Date Performed: 07/11/24 Height: 5 ft 6 in Weight: 80.9 kg Body Mass Index (BMI): 28.8 Surgical Procedure: Operation Date: 07/11/24 09:05 Proposed Procedure Side Surgeon p Luiz Enriquez MD Meds Allergies and Home Medications Allergies Allergy/AdvReac Type Severity Reaction Status Date / Time bacitracin AdvReac Intermediate SWELLING & Verified 07/11/24 07:48 IRRITATION Home Medication ?Medication ?Instructions ?Recorded triamcinolone acetonide 0.025 % 1 applic topical BID PRN eczema 01/11/24 topical cream #454 grams triamcinolone acetonide 0.1 % 1 applic topical BID #15 grams 05/05/24 topical cream Current Visit Medications: Current Medications Generic Name Dose Route Start Last Admin Trade Name Freq PRN Reason Stop Dose Admin Hyoscyamine Sulfate 0.125 mg 07/10/24 20:24 Hyoscyamine 0.125 Mg Sl/Oral/Chew SL 08/09/24 20:23 DIRECTED PRN Ringer's Solution 1,000 mls @ 80 mls/hr 07/11/24 06:00 07/11/24 08:00 IV 07/11/24 23:59 80 mls/hr INFUSION ZAHIDA Administration IV Miscellaneous Supplies 1 each 07/11/24 06:00 Iv Access IV 07/11/24 23:59 DIRECTED ZAHIDA Ondansetron HCl 4 mg 07/10/24 20:24 Ondansetron 4 Mg/2 Ml Vial IVP 08/09/24 20:23 Q4H PRN PRN Nausea / Vomiting Sodium Chloride 0 ml 07/11/24 06:00 Normal Saline Flush 10 Ml Syr IV 07/11/24 23:59 PRN PRN Sodium Chloride 0 ml 07/11/24 06:00 Normal Saline 10 Ml Vial IJ 07/11/24 23:59 DIRECTED PRN Sterile Water 0 ml 07/11/24 06:00 Water,Injection,Sterile 10 Ml Vial IJ 07/11/24 23:59 DIRECTED PRN PFSH Active Problems Active Problems: Problem Status Onset Code Encounter for screening colonoscopy Acute Z12.11 Liver donor Acute Z52.6 Infected cyst of skin Acute L72.9, L08.9 Colon cancer Chronic C18.9 Skin lesion Acute L98.9 Dyshidrotic eczema Acute L30.1 Cellulitis, finger Acute L03.019 External ear canal exostosis Acute H61.819 Rash Acute R21 Neuropathy Acute G62.9 COVID-19 Acute ~12/19/21 U07.1 Sebaceous cyst Acute L72.3 Fatigue Acute R53.83 Neuropathy Acute G62.9 Positive PPD Acute R76.11 Gout Chronic M10.9 Multiple pulmonary nodules Chronic R91.8 Eczema Chronic L30.9 History of cataract removal with insertion of prosthetic lens Acute Z98.49, Z96.1 History of surgical procedure Acute Z98.890 Lung nodule Acute ~01/2019 R91.1 Alcohol abuse Acute F10.10 Cataract Acute H26.9 Contact dermatitis Acute L25.9 Essential hypertension Acute I10 Induratio penis plastica Acute N48.6 Malignant neoplasm metastatic to colon Acute 12/28/13 C78.5 Old anterior cruciate ligament disruption Acute M23.50 Pneumonia Acute J18.9 Polyp of colon Acute K63.5 Tobacco use disorder Acute F17.200 Medical History Medical History 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 EMERGENCY ABDOMINAL SURGERY~12/28 scar tissue. Colonoscopy - MAC (07/09/18) Colectomy (~2011) right hemicolectomy Extraction of cataract B/L Tobacco Smoking/Tobacco Use Status: Former Tobacco Use Passive smoking exposure: Yes Alcohol Alcohol Intake: current Alcohol intake frequency: 3 or more drinks per day Alcohol type: beer and hard liquor Substance Use Substance use: Never Substance use type: does not use Vital Signs and Lab Results Vital Signs Most Recent Vital Signs in EMR: Most Recent Vital Signs Temp Pulse Resp BP Pulse Ox 36 C L 72 18 127/81 95 07/11/24 07:42 07/11/24 07:42 07/11/24 07:42 07/11/24 07:42 07/11/24 07:42 Lab Results Blood Type / Crossmatch: No Data to Display Complete Blood Count: No Data to Display Complete Metabolic Panel: No Data to Display Liver Function Panel: No Data to Display Coagulation Panel: No Data to Display Cardiac Panel: No Data to Display Arterial Blood Gas: No Data to Display Venous Blood Gas: No Data to Display Pancreas Panel: No Data to Display Thyroid Panel: No Data to Display Infectious Disease: No Data to Display Blood Cultures: No Data to Display Toxicology Panel: No Data to Display Imaging and Studies Imaging and Studies Study information below may be from another EMR and interpreted by another provider. Please see original notes in EMR for more complete details. EKG Summary: 11/23/20 Conclusion Sinus rhythm normal P axis Atrial premature complexes Stress Test Summary: 11/30/20 Stress ECG Conclusion 1. Resting electrocardiogram showed sinus rhythm, isolated atrial premature beat, otherwise normal 2. The patient exercised on the Sina protocol and completed a workload of 10.10 METS, limited by dyspnea. 3. He exercised for 8 minutes 26 seconds. Normal blood pressure response to exercise. Blunted heart rate response to exercise. The patient achieved 84% of predicted heart rate for age 4. Electrocardiographically there was no evidence of myocardial ischemia 5. Frequent atrial premature beats, occasional ventricular premature beats noted Brizuela Treadmill Score is 7.5 which is Low risk. Anesthesia Assessment and Plan Anesthesia History Personal History: No History of Anesthesia Complications Family History: No Family History of Anesthesia Complications Exercise Tolerance Exercise Tolerance: Metabolic Equivalents>4 Pertinent Negatives Pertinent Negatives: No Symptoms of GERD, No Major Cardiovascular Symptoms or Co mplaints, No Major Pulmonary Symptoms or Complaints and No History of CVA/TIA Cardiac & Pulmonary Exam Cardiac Exam: Normal S1/S2 Heart Sounds Pulmonary Exam: Clear Bilateral Breath Sounds Implantable Cardiac Device Does patient have a Pacemaker or an ICD?: No Airway Exam Known Difficult Airway: No Mallampati Class: 3 Mouth Opening: Normal (> 3cm) Thyromental Distance: Greater than 3 cm Facial Hair: Full Ng Neck Range of Motion: Full ROM Neck Circumference: Normal Teeth Condition: Generalized Poor Dentition (none loose per patient) ASA Classification ASA Score: ASA 2 Emergency Case?: No NPO Status NPO Status: NPO Clears >2 hours, Solids >8 hours Anesthesia Plan Resuscitation Status: Full Code Anesthesia Technique: General Anesthesia Airway Planned: Natural Airway Monitors Used: Standard Monitors Preoperative Comments:: 79 y/o male with history of ETOH abuse, sleep apnea with Bipap use and colon cancer (s/p right hemicolectomy) presents for colonoscopy screening. His last screening was in 2018, which was remarkable for a hyperplastic polyp.
[2024-07-11 08:13] VITALS: BMI 28.8
--- NOTE | 2024-07-11 09:24 | BOWEL_PTH ---
PATIENT: Zev Hernandez LOC: [facility] U#:[id number] AGE/SX: 79/M ROOM: RE07/11/[address]: Serafin Enriquez MD : [id number] BED: DIS: 07/11/2024 SPEC #: [id number] RECD: 07/11/24 11:51 STATUS: JEY REQ #: [id number] DANITZA: 07/11/24 09:[address]: Serafin Enriquez DEPT: Surgical Specimen RECD BY: Reshma Perry ENTERED: 07/11/24 11:51 SP TYPE: Bowel OTHR DR: Jose Wilson MD Tissues: 1 - BIOPSY BOWEL Procedures: GROSS AND MICRO LEVEL 4 Comments: [id number]
[2024-07-11 09:37] VITALS: BP 87/63; PULSE 61; RESP 16; TEMP 36.6; O2SAT 94
[2024-07-11 09:46] VITALS: BP 103/76; PULSE 54; RESP 16; O2SAT 94
[2024-07-11 10:05] VITALS: BP 125/87; PULSE 59; RESP 16; TEMP 36.4; O2SAT 95
--- NOTE | 2024-07-11 10:10 | W.ANESPOSTOP ---
Postoperative Evaluation Date, Time and Location Date Performed: 07/11/24 Time Performed: 08:00 Patient Location: Day Surgery Unit Vital Signs Most Recent Imported Vital Signs: Most Recent Vital Signs Temp Pulse Resp BP Pulse Ox 36.4 C L 59 L 16 125/87 95 07/11/24 10:05 07/11/24 10:05 07/11/24 10:05 07/11/24 10:05 07/11/24 10:05 Pain Score Most Recent Pain Score: Most Recent Pain Score Pain Level 0 07/11/24 10:05 Assessment Mental Status: Awake (Alert & Oriented to Patient Baseline) Airway and Respiratory Function: Patent airway with normal (patient baseline) respiratory exam Cardiovascular Function: Hemodynamically Stable Hydration Status: Adequately Hydrated Nausea & Vomiting: No Nausea or Vomiting Pain: Pt. Denies Any Pain Peripheral Nerve Block: Patient did not receive a nerve block
== END 2024-07-11 10:34 | disposition home or self-care (01) ==
LOC: SUR 07:29
PROVIDERS: PCP Family Medicine; Visit Provider Surgery
PROC: 0DJD8ZZ Inspection of Lower Intestinal Tract, Via Natural or Artificial Opening Endoscopic (ICD-10-PCS; CPT 45378; principal; 2024-07-11 09:00)
DX: Z12.11 Encounter for screening for malignant neoplasm of colon (principal); I10 Essential (primary) hypertension; D12.5 Benign neoplasm of sigmoid colon
CPT/HCPCS: 45380; 88305; J2704

== ENCOUNTER 2024-10-11 15:11 | Outpatient (CLI) | payer MEDICARE, SELFPAY ==
--- NOTE | 2024-10-11 14:00 | DI.CT_ITS ---
Exam(s) CT ABDOMEN PELVIS W EXAM: CT ABDOMEN PELVIS W CLINICAL HISTORY: concern for recurrence of SBO R11.10 VOMITING R19.7 DIARRHEA. TECHNIQUE: Imaging Protocol: Axial computed tomography images with coronal and sagittal reformatted images were created and reviewed CONTRAST MATERIAL: Intravenous: Omnipaque-350 100cc Oral: Yes. Oral contrast was also administered for bowel opacification. COMPARISON: CT CHEST ABD PELVIS WITH CONTRAST from 12/05/2013 CT CHEST - LUNG CANCER SCREENING from 03/22/2018 CR XR CHEST 2V PA LATERAL from 08/02/2018 FINDINGS: VISUALIZED LUNG BASES: No nodules nor pleural effusions evident. ABDOMEN: There is no ascites. LIVER: Again noted is evidence of partial hepatectomy. There are 2 cysts again noted in the liver. The larger of the 2 is in the left hepatic lobe and measures 10.5 cm wide by 8.7 cm AP by 8.8 cm cran iocaudal. This has significantly increased in size from 2014 CT scan. However, the other cysts in t he liver are less in size and number. A previously present 9 cm cyst now appears to measure 2.8 by 2 .2 cm. The liver cysts appear simple with no solid enhancing nodules nor internal septae. GALLBLADDER/BILIARY: Gallbladder is not seen and presumed to be surgically absent. CBD is not dilate d. PANCREAS: No evidence of pancreatic mass nor dilatation of the pancreatic duct. SPLEEN: Spleen is not enlarged. No obvious intrasplenic lesions. Splenic and portal veins are paten t. ADRENALS: Slight thickening and nodularity of the left adrenal gland is again noted. Right adrenal g land unremarkable. KIDNEYS:Right kidney unremarkable. There is a large benign cyst in the superior pole of the left kid dinora which measure 7 by 6 cm, larger than previous but remaining benign. There is a small 2 millimete r cyst adjacent calculus in left kidney, nonobstructive. There is another smaller benign cyst off th e medial aspect of the inferior pole the left kidney which measures 1.3 x 1.1 cm. The ureters are no t dilated. No solid renal masses.. ABDOMINAL AORTA: Abdominal aorta is not enlarged. Iliac arteries unremarkable without significant an eurysms. LYMPH NODES:There is a small lymph node adjacent to the left side of the lower esophagus measuring 10 x 8 mm. This, however, is unchanged from 2014. There is no prominent retroperitoneal nor para-aort ic adenopathy. There is no adenopathy around the aortic bifurcation nor along the iliac chains and t here is no significant inguinal adenopathy. ABDOMINAL WALL: No evidence of significant anterior abdominal wall nor inguinal hernia. GI: The administered oral contrast has traversed the nonobstructed small bowel (which exhibits upper normal diameter). There has been partial right hemicolectomy. There does not appear to be obstructi on at the right-sided anastomosis. The colon is not collapsed. PELVIS: GI: Appendix surgically absent.No evidence of sigmoid diverticulitis. LYMPH NODES: There is no intrapelvic nor inguinal adenopathy. REPRODUCTIVE: Mildly enlarged prostate. Measures 4.5 cm wide. Seminal vesicles appear unremarkable. URINARY BLADDER: No calculi nor obvious masses evident. Pelvic ureters are not dilated. OSSEOUS: No fractures and no significant osseous lesions. Chronic advanced disc space narrowing and at L2-3 level. Mild degenerative anterolisthesis of L5 upo n S1. IMPRESSION: 1. Compared to prior CT scans listed above there is again noted evidence of prior partial right hemic olectomy and partial right hepatectomy as well as cholecystectomy. 2. There is no evidence of bowel obstruction, free air, nor abscess. There is no ascites. 3. Large liver cysts as described above. No solid hepatic masses evident. 4. Solitary nonobstructive 2 millimeter calculus noted in the left kidney. This is adjacent to a bladimir ign 7 x 6 cm left renal cyst. RADIATION DOSE DELIVERED: 532.42mGy.cm Total DLP DATA REPOSITORY: All CT scans at this facility are submitted to the National Radiology Data Registry (NRDR) Dose Index Registry (DIR) with the [employer] (A[employer]). RADIATION OPTIMIZATION: All CT scans at this facility use at least one of these dose optimization te chniques: automated exposure control; mA and/or kV adjustment per patient size (includes targeted exa ms where dose is matched to clinical indication); or iterative reconstruction.
[2024-10-11] MEDS: Breeza Beverage 473 ML BTL PO ×2 (14:19→14:20)
[2024-10-11] MEDS: Omnipaque 350 MG/ML 50 ML BTL PO (14:19)
[2024-10-11 14:44] LABS: Abs Immature Grans 0.02 10^3/uL (0.0-0.06); Absolute Basophil Count 0.01 10^3/uL (0.0-0.2); Absolute Eosinophil Count 0.08 10^3/uL (0.0-0.7); Absolute Lymphocyte Count 0.83 10^3/uL (1.2-3.4); Absolute Monocyte Count 0.49 10^3/uL (0.1-0.8); Absolute Neutrophil Count 5.13 10^3/uL (1.2-6.7); Basophils % 0.2 %; Eosinophils % 1.2 %; HCT 44.6 % (40.0-50.0); HGB 14.4 g/dL (13.5-17.5); Immature Grans % 0.3 %; Lymphocytes % 12.7 %; MCH 30.4 pg (27.0-33.0); MCHC 32.3 % (32.0-36.0); MCV 94 fL (80-95); MPV 9.4 fL (8.0-11.0); Monocytes % 7.5 %; Neutrophils % 78.1 %; Platelet Count 259 10^3/uL (130-400); RBC 4.73 10^6/uL (4.36-5.78); RDW 13.6 % (11.8-14.1); RDW-SD 47.3 fL; WBC 6.56 10^3/uL (4.4-10.8)
[2024-10-11 14:59] LABS: ALT 21 U/L (16-63); AST 18 U/L (15-37); Albumin 3.5 g/dL (3.4-5.0); Alkaline Phosphatase 79 U/L (46-116); Anion Gap 8.4 mmol/L (3-11); BUN 18 mg/dL (7-18); Bilirubin, Total 0.68 mg/dL (0.2-1.0); CO2 28.6 mmol/L (21.0-32.0); CREATININE 1.6 mg/dL (0.70-1.30); Calcium 8.5 mg/dL (8.5-10.1); Chloride 108 mmol/L (98-107); Estimated GFR 43.29 (mL/min/1.73m2); Glucose 100 mg/dL (74-106); Potassium 3.9 mmol/L (3.5-5.1); Sodium 145 mmol/L (136-145); Total Protein 7.6 g/dL (6.4-8.2)
[2024-10-11 15:00] LABS: ALT 20 U/L (16-63); AST 17 U/L (15-37); Albumin 3.5 g/dL (3.4-5.0); Alkaline Phosphatase 81 U/L (46-116); Bilirubin, Direct 0.2 mg/dL (0.0-0.2); Bilirubin, Total 0.67 mg/dL (0.2-1.0); Total Protein 7.6 g/dL (6.4-8.2)
[2024-10-11] MEDS: Omnipaque 350 MG/ML 100 ML BTL IJ (15:56)
[2024-10-11] MEDS: Normal Saline - Diluent 50 ML VIAL IJ (15:56)
--- NOTE | 2024-10-11 16:44 | DI.VRAD_ITS ---
PROCEDURE INFORMATION: Exam: CT Abdomen And Pelvis With Contrast Exam date and time: 10/11/2024 3:47 PM Age: 79 years old Clinical indication: Other: Concern for recurrence of sbo vomiting diarrhea TECHNIQUE: Imaging protocol: Computed tomography of the abdomen and pelvis with contrast. Contrast material: OMNIPAQUE 350; Contrast volume: 100 ml; Contrast route: INTRAVENOUS (IV); COMPARISON: US SCROTUM 06/22/2020 11:47 AM FINDINGS: Lungs: The visualized lung bases are within normal limits. Heart: The visualized portions of the heart and pericardium appear unremarkable. Liver: The patient is status post resection of a portion of the right lobe of the liver. There is a large cyst within the left lobe of the liver measuring 10.7 x 9.3 cm. There are additional tiny low-attenuation lesions within the liver which are too small to characterize by CT criteria. Gallbladder and biliary ducts: The gallbladder is within normal limits. Pancreas: The pancreas is unremarkable. Spleen: The spleen is within normal limits. Adrenal glands: There is hypertrophy of the left adrenal gland. There is slight hypertrophy of the right adrenal gland. Kidneys and ureters: There is a large upper pole simple left renal cyst measuring 6.9 x 6.1 cm. The right kidney is within normal limits. Stomach and bowel: There is mucosal thickening at the level of the jejunum. This could be secondary to jejunitis. Clinical correlation is recommended. The patient is status post right hemicolectomy. Appendix: See above. Intraperitoneal space: Unremarkable. No free air. No significant fluid collection. Vasculature: There are arteriosclerotic changes of the aorta. Lymph nodes: There is a small anterior diaphragmatic lymph node measuring up to 8 mm. Urinary bladder: The urinary bladder is within normal limits. Reproductive: The prostate and seminal vesicles are within normal limits. Bones/joints: There are degenerative changes of the thoracic and lumbar spines. There is degenerative disc disease at multiple levels. Soft tissues: Unremarkable. IMPRESSION: 1. Suspect jejunitis. 2. Status post liver surgery as above. Liver cysts as above. 3. Left renal cyst as above. 4. Hypertrophy of the adrenal glands as above. 5. Osseous findings as above. Dictated and Authenticated by: James Conn MD. Ordering:MAGUE Fall MD
[2024-10-12 10:44] LABS: Lyme Ab w Rflx to Lyme Confirm Positive (Negative)
[2024-10-12 12:37] LABS: Lyme IgG Ab Positive (Negative); Lyme IgM Ab Negative (Negative)
== END 2024-10-11 15:31 ==
LOC: DI 15:12
PROVIDERS: PCP Family Medicine; Visit Provider Nurse Practitioner Family
DX: R19.7 Diarrhea, unspecified (principal); G72.89 Other specified myopathies; K76.0 Fatty (change of) liver, not elsewhere classified
CPT/HCPCS: 80053; 80076; 86617; 74177; 85025; 86618; J3490; Q9967